=== PATIENT | male | born 1945 | race Caucasian/White ===

== ENCOUNTER → 2017-10-02 | Outpatient (CLI) | payer BC | END | disposition home or self-care (01) | LOC: ECHO 07:44 | DX: J44.1 Chronic obstructive pulmonary disease with (acute) exacerbation (principal); I10 Essential (primary) hypertension; I34.0 Nonrheumatic mitral (valve) insufficiency; I34.1 Nonrheumatic mitral (valve) prolapse; R06.09 Other forms of dyspnea | CPT/HCPCS: 93306 ==

== ENCOUNTER → 2018-02-26 | Outpatient (CLI) | payer BC ==
[2018-02-26 12:55] LABS: ADD MAN DIFF? NO
[2018-02-26 12:59] LABS: BASO # 0.1 x10^3/uL (0.0-0.2); BASO % 1 % (0-3); EOS # 0.3 x10^3/uL (0.0-0.7); EOS % 3 % (0-3); HEMATOCRIT 44.2 % (39.0-53.0); HEMOGLOBIN 14.9 g/dL (13.0-17.5); LYMPH # 2.4 x10^3/uL (1.0-4.8); LYMPH % 19 % (24-48); MEAN CORPUSCULAR HEMOGLOBIN 30 pg (25-35); MEAN CORPUSCULAR HGB CONC 34 g/dL (31-37); MEAN CORPUSCULAR VOLUME 88 fL (79-100); MONO % 8 % (0-9); NEUT # 8.6 x10^3uL (1.8-7.7); NEUT % 69 % (31-73); PLATELET COUNT 253 x10^3/uL (140-400); RED CELL DISTRIBUTION WIDTH 14.6 % (11.5-14.5); WHITE BLOOD COUNT 12.4 x10^3/uL (4.0-11.0)
[2018-02-26 13:18] LABS: ALBUMIN 3.4 g/dL (3.4-5.0); ALBUMIN/GLOBULIN RATIO 0.8 (1.0-1.7); ALK PHOS 97 U/L (46-116); ALT (SGPT) 20 U/L (16-63); ANION GAP 11 (6-14); AST (SGOT) 14 U/L (15-37); BLOOD UREA NITROGEN 18 mg/dL (8-26); BUN/CREATININE RATIO 18 (6-20); CALCIUM 8.7 mg/dL (8.5-10.1); CARBON DIOXIDE 24 mmol/L (21-32); CHLORIDE 101 mmol/L (98-107); GFR 73.7; GLUCOSE 155 mg/dL (70-99); POTASSIUM 4.1 mmol/L (3.5-5.1); SODIUM 136 mmol/L (136-145); TOTAL BILIRUBIN 0.5 mg/dL (0.2-1.0); TOTAL PROTEIN 7.6 g/dL (6.4-8.2)
== END | disposition home or self-care (01) ==
LOC: LAB 12:37
DX: Z01.818 Encounter for other preprocedural examination (principal)
CPT/HCPCS: 36415; 71046; 80053; 85025

== ENCOUNTER → 2018-02-27 | Outpatient (CLI) | payer BC ==
[2018-02-27] MEDS: IOHEXOL 300 MG/ML 100ML VIAL. IV (12:30)
== END | disposition home or self-care (01) ==
LOC: CT 12:14
DX: J43.9 Emphysema, unspecified (principal); I82.290 Acute embolism and thrombosis of other thoracic veins; I11.9 Hypertensive heart disease without heart failure; E11.9 Type 2 diabetes mellitus without complications; R91.8 Other nonspecific abnormal finding of lung field
CPT/HCPCS: 71260; Q9967

== ENCOUNTER → 2018-03-06 | Day surgery (SDC) | payer BC ==
[~2018-03-06] MED LIST: EPINEPHrine 1 MG/ML VIAL; IOHEXOL 300 MG/ML 100ML VIAL.; IV RINGERS,LACTATED 1000ML 1,000 ML IV; LIDOCAINE 1% Multi-Dose 50 ML VIAL.; LIDOCAINE 2% PF Vial for OR 5 ML VIAL.; PROPOFOL 40 ML IV
[2018-03-06 12:56] LABS: POC GLUCOSE 184 mg/dL (70-99)
[2018-03-06 13:05] LABS: ADD MAN DIFF? NO
[2018-03-06 13:08] LABS: BASO # 0.1 x10^3/uL (0.0-0.2); BASO % 1 % (0-3); EOS # 0.3 x10^3/uL (0.0-0.7); EOS % 3 % (0-3); HEMATOCRIT 45.3 % (39.0-53.0); HEMOGLOBIN 15.5 g/dL (13.0-17.5); LYMPH # 2.1 x10^3/uL (1.0-4.8); LYMPH % 21 % (24-48); MEAN CORPUSCULAR HEMOGLOBIN 30 pg (25-35); MEAN CORPUSCULAR HGB CONC 34 g/dL (31-37); MEAN CORPUSCULAR VOLUME 88 fL (79-100); MONO # 0.8 x10^3/uL (0.0-1.1); MONO % 8 % (0-9); NEUT # 6.9 x10^3uL (1.8-7.7); NEUT % 67 % (31-73); PLATELET COUNT 278 x10^3/uL (140-400); RED BLOOD COUNT 5.16 x10^6/uL (4.30-5.70); RED CELL DISTRIBUTION WIDTH 14.4 % (11.5-14.5); WHITE BLOOD COUNT 10.2 x10^3/uL (4.0-11.0)
[2018-03-06] MEDS: ALBUTEROL SULFATE 2.5 MG/3 ML NEBU. IH (13:10)
[2018-03-06 13:18] LABS: INR 1.1 (0.8-1.1); PROTHROMBIN TIME PATIENT 13.5 SEC (11.7-14.0)
== END | disposition home or self-care (01) ==
LOC: SURG 12:18
DX: J42 Unspecified chronic bronchitis (principal); Z98.890 Other specified postprocedural states; I25.10 Atherosclerotic heart disease of native coronary artery without angina pectoris; Z95.1 Presence of aortocoronary bypass graft; Z95.0 Presence of cardiac pacemaker; J43.9 Emphysema, unspecified; I11.9 Hypertensive heart disease without heart failure; E78.00 Pure hypercholesterolemia, unspecified; G47.30 Sleep apnea, unspecified; E66.9 Obesity, unspecified; E11.9 Type 2 diabetes mellitus without complications; F32.9 Major depressive disorder, single episode, unspecified; F41.9 Anxiety disorder, unspecified; F17.200 Nicotine dependence, unspecified, uncomplicated; Z82.49 Family history of ischemic heart disease and other diseases of the circulatory system; Z79.4 Long term (current) use of insulin
CPT/HCPCS: 31622; 31624; 31625; 36415; 82962; 85025; 85610; 87070; 87102; 87205; 88112; 88305; 94640; J0171; J2001; J2704; J7613; Q9967

== ENCOUNTER 2018-03-20 06:58 | Outpatient (CLI) | payer BC ==
[2018-03-20 07:44] LABS: ADD MAN DIFF? NO
[2018-03-20 07:50] LABS: BASO # 0.2 x10^3/uL (0.0-0.2); BASO % 2 % (0-3); EOS # 0.4 x10^3/uL (0.0-0.7); EOS % 3 % (0-3); LYMPH # 2.9 x10^3/uL (1.0-4.8); LYMPH % 23 % (24-48); MEAN CORPUSCULAR HEMOGLOBIN 31 pg (25-35); MEAN CORPUSCULAR HGB CONC 35 g/dL (31-37); MEAN CORPUSCULAR VOLUME 88 fL (79-100); MONO % 8 % (0-9); NEUT # 8.4 x10^3uL (1.8-7.7); NEUT % 65 % (31-73); PLATELET COUNT 262 x10^3/uL (140-400); RED BLOOD COUNT 5.23 x10^6/uL (4.30-5.70); RED CELL DISTRIBUTION WIDTH 14.5 % (11.5-14.5)
[2018-03-20] MEDS ORDERED: MIDAZOLAM HCL/PF 2 MG/2 ML VIAL. (08:01)
[2018-03-20 08:02] LABS: PROTHROMBIN TIME PATIENT 12.8 SEC (11.7-14.0)
[2018-03-20] MEDS ORDERED: NALOXONE 0.4 MG/ML VIAL. (08:02)
[2018-03-20] MEDS ORDERED: fentaNYL PF VIAL 100 MCG/2 ML VIAL (08:02)
[2018-03-20] MEDS ORDERED: FLUMAZENIL 0.5 MG/5 ML VIAL. IV (08:02)
[2018-03-20] MEDS ORDERED: LIDOCAINE WITH 8.4% SOD BICARB 3 ML DISP.SYRIN. (08:26)
[2018-03-20 08:38] LABS: POC GLUCOSE 281 mg/dL (70-99)
[2018-03-20 08:38] LABS: POC GLUCOSE 297 mg/dL (70-99)
[2018-03-20] MEDS: MIDAZOLAM HCL/PF 2 MG/2 ML VIAL. IV (09:00)
[2018-03-20] MEDS: LIDOCAINE WITH 8.4% SOD BICARB 3 ML DISP.SYRIN. IJ (09:00)
[2018-03-20] MEDS: fentaNYL PF VIAL 100 MCG/2 ML VIAL IV (09:00)
== END 2018-03-20 12:00 | disposition home or self-care (01) ==
LOC: INTRAD 06:58
DX: C34.92 Malignant neoplasm of unspecified part of left bronchus or lung (principal); Z98.890 Other specified postprocedural states; I11.9 Hypertensive heart disease without heart failure; E78.00 Pure hypercholesterolemia, unspecified; G47.30 Sleep apnea, unspecified; E66.9 Obesity, unspecified; Z68.32 Body mass index [BMI] 32.0-32.9, adult; E11.9 Type 2 diabetes mellitus without complications; I25.10 Atherosclerotic heart disease of native coronary artery without angina pectoris; Z95.1 Presence of aortocoronary bypass graft; Z95.0 Presence of cardiac pacemaker; F41.9 Anxiety disorder, unspecified; F32.9 Major depressive disorder, single episode, unspecified; F17.200 Nicotine dependence, unspecified, uncomplicated; Z82.49 Family history of ischemic heart disease and other diseases of the circulatory system; Z79.899 Other long term (current) drug therapy; J43.9 Emphysema, unspecified; Z86.718 Personal history of other venous thrombosis and embolism; Z79.82 Long term (current) use of aspirin; Z79.84 Long term (current) use of oral hypoglycemic drugs
CPT/HCPCS: 32405; 36415; 71046; 77012; 82962; 85025; 85610; 99152; C1892; J2250; J3010

== ENCOUNTER 2018-04-05 08:23 | Outpatient (CLI) | payer BC ==
[~2018-04-05] VITALS: Ht 185.4 cm; Wt 110.7 kg
[~2018-04-05 08:23] MED LIST changes: +ASPI325T8 PO; +DIGO0.25 PO; +DIGO250T PO; -EPINEPHrine 1 MG/ML VIAL; +GEMF600T3 PO; +INSU100V8 SQ; -IOHEXOL 300 MG/ML 100ML VIAL.; -IV RINGERS,LACTATED 1000ML 1,000 ML IV; -LIDOCAINE 1% Multi-Dose 50 ML VIAL.; -LIDOCAINE 2% PF Vial for OR 5 ML VIAL.; +LISI-338 PO; +METF500T5 PO; -PROPOFOL 40 ML IV; +VENL150C6 PO
[2018-04-05 09:09] VITALS: BP 150/72
[2018-04-05] MEDS ORDERED: LIDOCAINE 1%/EPI 1:100,000 20 ML VIAL. ONE (09:21)
[2018-04-05] MEDS ORDERED: HEPARIN for IV BOLUS 10,000 UNIT/10 ML VIAL. ONE (10:10)
[2018-04-05] MEDS ORDERED: HEPARIN PF 500 UNIT/5 ML DISP.SYRIN. IV ONE ×2 (10:11→11:00)
[2018-04-05] MEDS ORDERED: fentaNYL PF VIAL 100 MCG/2 ML VIAL ONE (10:35)
[2018-04-05] MEDS ORDERED: MIDAZOLAM HCL/PF 2 MG/2 ML VIAL. ONE (10:35)
[2018-04-05] MEDS ORDERED: IOHEXOL 240 MG/ML 50ML VIAL. ONE (10:45)
[2018-04-05] MEDS ORDERED: MIDAZOLAM HCL/PF 2 MG/2 ML VIAL. IV ONE (11:00)
[2018-04-05] MEDS ORDERED: fentaNYL PF VIAL 100 MCG/2 ML VIAL IV ONE (11:00)
[2018-04-05] MEDS ORDERED: LIDOCAINE 1%/EPI 1:100,000 20 ML VIAL. IJ ONE (11:00)
[2018-04-05] MEDS ORDERED: CONTRAST GIVEN. MC PRN (11:00)
[2018-04-05 11:23] VITALS: BP 138/62
[2018-04-05] MEDS ORDERED: IOHEXOL 240 MG/ML 50ML VIAL. IV ONE (11:30)
[2018-04-05 11:43] VITALS: BP 153/64
[2018-04-05 11:57] VITALS: BP 154/55
[2018-04-05 12:11] VITALS: BP 140/62
--- NOTE | 2018-04-06 13:38 | RAD ---
Procedure: Ultrasound and fluoroscopically guided placement of right internal jugular power port.. 04/06/2018 1:33 PM Clinical Indication: Central venous access for chemotherapy. 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 Sedation: Conscious sedation was administered for 30 minutes. The patient was monitored by a qualified independent observer throughout the time of sedation. Please refer to the medical record for exact doses of medications utilized to achieve moderate sedation. Fluoroscopy time: 3.1 Minutes Dose area product: 34 Gycm2 Consent: The procedure was explained in its entirety to the patient or the patients designated exhibit display representative by a member of the treatment team, including a discussion of the risks, benefits and commonly accepted alternatives to the procedure, as well as the expected consequences of no therapy whatsoever. Discussion of the risks included, but was not limited to, those that are most frequent and those that are rare but possibly severe or life-threatening, as well as the possibility of unforeseen complications. The patient is a right internal jugular and subclavian vein occlusion. Patient is a left hilar mass. Clearvue port was placed for this purpose, intentionally placed immediately inferior to the left clavicle. Technique and Findings: All elements of maximal sterile barrier technique including the use of a cap, mask, sterile gown, sterile gloves, large sterile sheet, appropriate hand hygiene, and 2% chlorhexidine for cutaneous antisepsis (or acceptable alternative antiseptic per current guidelines) were followed for this procedure. Following informed consent, and a timeout procedure, the patient was prepped and draped in the usual sterile fashion. Ultrasound interrogation of the left neck revealed patency and compressibility of the right internal jugular vein. A 21-gauge micropuncture was then used to gain access to this vein under ultrasound guidance. A hard copy ultrasound image was recorded. The needle was exchanged over a wire for a sheath. A 1 inch incision was made several centimeters inferior to the venotomy site. A catheter was tunneled from this site dermatotomy site in the neck. Catheter was advanced through peel-away sheath such that its tip was in the proximal right atrium with the patient supine. The catheter was trimmed to length and connected to the port reservoir. The port was found to flush and aspirate normally. The wound was closed in layers using 4-0 Vicryl suture. Sterile dressings were applied. Impression: Successful ultrasound and fluoroscopically guided placement of a left internal jugular port
== END 2018-04-05 12:42 | disposition home or self-care (01) ==
LOC: INTRAD 08:23
PROVIDERS: ATTEND Internal Medicine Hematology & Oncology
DX: Z45.2 Encounter for adjustment and management of vascular access device (principal); I74.2 Embolism and thrombosis of arteries of the upper extremities; I25.10 Atherosclerotic heart disease of native coronary artery without angina pectoris; E78.00 Pure hypercholesterolemia, unspecified; G47.30 Sleep apnea, unspecified; E66.9 Obesity, unspecified; F32.9 Major depressive disorder, single episode, unspecified; F41.9 Anxiety disorder, unspecified; Z98.890 Other specified postprocedural states; Z95.1 Presence of aortocoronary bypass graft; Z95.0 Presence of cardiac pacemaker; Z85.118 Personal history of other malignant neoplasm of bronchus and lung; Z72.0 Tobacco use; Z79.82 Long term (current) use of aspirin; Z79.4 Long term (current) use of insulin; Z79.899 Other long term (current) drug therapy
CPT/HCPCS: 36561; 75827; 76937; 77001; C1751; C1769; C1892; J0690; J2250; J3010; J3490; Q9966; 99152; 99153

== ENCOUNTER → 2018-05-29 | Outpatient (CLI) | payer BC ==
[~2018-05-29] MED LIST changes: -GEMF600T3 PO; +GEMF600T4 PO; +METF500T16 PO; -METF500T5 PO
--- NOTE | 2018-05-29 10:10 | RAD ---
CT CHEST WO CONTRAST Indication: Lung cancer Technique: Noncontrast CT imaging was performed of the chest, multiplanar reconstruction images submitted. One or more of the following individualized dose reduction techniques were utilized for this examination: 1. Automated exposure control 2. Adjustment of the mA and/or kV according to patient size 3. Use of iterative reconstruction technique. Comparison: February 27, 2018 Findings: There is persistent although somewhat smaller spiculated left upper lobe mass in greatest dimension about 4.6 cm transverse by 3 cm AP by 3.1 cm CC versus previously about 4.7 cm transverse by 3.7 cm AP by 4.3 cm cc. There is again abutment of the left major fissure. There is again more peripheral somewhat bandlike density. Several anterior left upper lobe nodule about 1.1 cm with a somewhat bilobed appearance is stable. Tiny left upper lobe nodule superiorly axial image 17 about 0.5 cm is stable. Left lower lobe nodule axial image 42 about 0.9 cm is similar. Linear likely fibrotic change of the left lower lobe near the base is unchanged, also right lower lobe density stable. There is no new pulmonary nodularity. There are again calcified pleural plaques on the right. There is centrilobular emphysema with upper zone predominance. There is mediastinal lymphadenopathy. Pretracheal node just above fidel and measures about 1.5 cm x 3 cm, fairly similar. More superior right paratracheal node axial image 15 about 1.2 cm short axis dimension is slightly larger as previously about 1 cm. Another superior right paratracheal node axial image 12 about 1.2 cm short axis dimension previously measured about 1 cm. Another right paratracheal node axial image 22 measures about 1 cm short axis dimension versus previously about 0.8 cm. Thoracic aortic caliber is similar, again dilatation of the ascending thoracic aorta about 4.2 cm. There again has been median sternotomy. There is again electronic cardiac device. There is no pleural or pericardial effusion or pneumothorax. There is left internal jugular port catheter. There is cholelithiasis. There is coronary calcification. There is again right axillary lymphadenopathy, largest individual node about 1.3 cm short axis dimension versus previously about 1 cm. There is also again component of likely vascular congestion in the right axillary region. IMPRESSION: 1. There is persistent although somewhat smaller spiculated left upper lobe mass with abutment of the major fissure. Other previously seen lung nodules are stable, no new pulmonary nodularity. There is persistent slightly increased mediastinal and right axillary lymphadenopathy. 2. There is stable aneurysmal dilatation ascending thoracic aorta about 4.2 cm. There is coronary calcification. 3. There is centrilobular emphysema. 4. There is cholelithiasis. Electronically signed by: Ladarius Kam MD (05/29/2018 10:06 AM) [id number]
== END | disposition home or self-care (01) ==
LOC: CT 08:59
PROVIDERS: ATTEND Internal Medicine Hematology & Oncology
DX: C34.12 Malignant neoplasm of upper lobe, left bronchus or lung (principal); J43.2 Centrilobular emphysema; I71.2 Thoracic aortic aneurysm, without rupture; I25.10 Atherosclerotic heart disease of native coronary artery without angina pectoris; K80.80 Other cholelithiasis without obstruction; F17.210 Nicotine dependence, cigarettes, uncomplicated
CPT/HCPCS: 71250

== ENCOUNTER → 2018-09-14 | Outpatient (CLI) | payer BC ==
[~2018-09-14] MED LIST changes: +DURV120V IV; +FURO-68 PO; -GEMF600T4 PO; +GEMF600T8 PO
--- NOTE | 2018-09-14 11:11 | RAD ---
EXAM: CT Chest without IV contrast CLINICAL HISTORY: RESTAGE LUNG CA, FATIGUE COMPARISON: 05/29/2018, 03/02/2019 TECHNIQUE: CT of the chest without intravenous contrast. Axial, coronal and sagittal reformatted images were generated. ---PQRS compliance statement - One or more of the following individualized dose reduction techniques were utilized for this study: 1. Automated exposure control 2. Adjustment of the mA and/or kV according to patient size 3. Use of iterative reconstruction technique--- FINDINGS: Lack of intravenous contrast limits evaluation of solid organs, vasculature, and lymph nodes. Chest: The heart is not enlarged. No pericardial effusion. Coronary artery calcifications are seen. Aortic root calcifications are also seen. Ascending aorta measures 4.2 cm, stable. Enlarged mediastinal lymph nodes are seen. For example a 2.7 x 1.5 cm precarinal lymph node previously measured 3 x 1.5 cm, stable accounting for differences in technique. A right paratracheal lymph node measures 1.3 cm short axis, previously 1.2 cm short axis. A distinct right paratracheal lymph node measures 1.1 cm in short axis, previously 1.2 cm. Right axillary lymphadenopathy is also seen with associated soft tissue infiltration and vascular prominence. For example a right axillary lymph node measures 2.1 x 1.2 cm. A 3.5 x 2.6 cm spiculated lung mass previously measured 4.6 x 3 cm. Associated bandlike density is seen is seen about the spiculated left lung mass. This continues about the left major fissure. A 1.2 cm left upper lobe lung nodule is stable. Several additional smaller 4 mm lung nodules are seen. An 8 mm peripheral left lower lobe lung nodule previously measured 9 mm, stable. Several additional 4 mm lung nodules are seen. Bilateral emphysematous changes are seen. Interstitial prominence is seen bilaterally, stable. No pleural effusion or pneumothorax. No pericardial effusion. Left chest port terminates of the distal SVC. Visualized Upper abdomen: Calcified gallstones are seen within the gallbladder bladder. Moderate to large volume colonic stool content is seen. Bones: Degenerative changes of spine are seen. IMPRESSION: Spiculated left lung mass is marginally decreased in size. The mediastinal, hilar and axillary lymph nodes are stable in size. Bilateral lung nodules are also stable in size Electronically signed by: Jaime Anand MD (09/14/2018 11:07 AM) [facility]
== END | disposition home or self-care (01) ==
LOC: CT 09:42
PROVIDERS: ATTEND Internal Medicine Hematology & Oncology
DX: C34.12 Malignant neoplasm of upper lobe, left bronchus or lung (principal); J43.9 Emphysema, unspecified; R91.8 Other nonspecific abnormal finding of lung field; K80.20 Calculus of gallbladder without cholecystitis without obstruction; I25.10 Atherosclerotic heart disease of native coronary artery without angina pectoris; I70.0 Atherosclerosis of aorta; M47.814 Spondylosis without myelopathy or radiculopathy, thoracic region
CPT/HCPCS: 71250

== ENCOUNTER → 2018-10-08 | Outpatient (CLI) | payer BC ==
[~2018-10-08] MED LIST changes: +LEXAPRO20 MG PO; +MELO15TA6 PO; +MELO7.5T5 PO; +OXYMETAZOLINE 0.05% NASAL SPRAY 30ML BOTTLE. NS ONE; +ZOLPIDEM 5 MG TABLET. PO ONE
--- NOTE | 2018-10-09 09:39 | SLEEP ---
DATE OF STUDY: 10/08/2018 ATTENDING PHYSICIAN: Dr. Anisha Montes. The patient is 73 years old who weighs 249 pounds with a BMI of 34. The patient's Leota score was 15. The patient underwent split night study performed at [facility]. During the night of study, the patient spent 478 minutes in bed and slept for 319 minutes with a low sleep efficiency of 67%. Sleep latency was 65 minutes with absent REM sleep. Overall, sleep architecture showed increased stage 1 and stage 2 sleep with absent N3 sleep and absent REM sleep. During the initial diagnostic portion of the study, the patient slept for 91 minutes. During that time, the patient had 10 obstructive apneas, no mixed or central apneas and 119 hypopneas. The patient's apnea-hypopnea index was 85 per hour, supine index 85 per hour. REM sleep was not observed. Nocturnal oximetry study revealed an average oxygen saturation of 90% with the lowest of 82%. 99% of time oxygen saturation remained between 80% and 89%. EKG monitoring revealed an average heart rate of 86 beats per minute, no sustained arrhythmias were observed. PLMS were not seen. The patient met the criteria for CPAP initiation. It was started at 5 cm water and titrated up to 20 cm water. At the final pressure, the patient slept for 47 minutes. The patient had supine sleep throughout, no REM sleep observed. The patient's AHI was reduced to 1 per hour and oxygen saturation remained above 88% with lowest saturation of 87%. The patient used a medium size nasal mask. IMPRESSION: 1. Severe sleep apnea-hypopnea syndrome at an AHI of 85 per hour. 2. Nocturnal hypoxia secondary to obstructive sleep apnea, but resolved with CPAP. 3. No clinically significant PLMS. RECOMMENDATIONS: 1. CPAP at 20 cm water completely eliminated the patient's sleep apnea and should be used on a nightly basis. 2. Follow up in 4-6 weeks to assess compliance with CPAP and to document clinical improvement. 3. Weight loss was strongly advised. 4. Avoid [employer] depressants. 5. Caution regarding driving until symptoms of sleep apnea resolve with the use of CPAP. YO CARROLL MD DR: MAIA/lon JOB#: [id number] / [id number] Anisha Cline
== END | disposition home or self-care (01) ==
LOC: SLPLAB 18:35
PROVIDERS: ATTEND Internal Medicine Critical Care Medicine
DX: G47.33 Obstructive sleep apnea (adult) (pediatric) (principal); G47.34 Idiopathic sleep related nonobstructive alveolar hypoventilation
CPT/HCPCS: 95810

== ENCOUNTER → 2018-12-21 | Outpatient (CLI) | payer BC ==
[~2018-12-21] MED LIST changes: -OXYMETAZOLINE 0.05% NASAL SPRAY 30ML BOTTLE. NS ONE; -ZOLPIDEM 5 MG TABLET. PO ONE
--- NOTE | 2018-12-21 16:39 | RAD ---
CT of the chest without contrast, 12/21/2018: HISTORY: Lung nodule, previous lung cancer Noncontrast scans were obtained and compared to a study from 09/14/2018. There is calcific plaquing of the thoracic aorta without evidence of aneurysm. Moderate coronary artery calcifications are present. A central venous catheter extends to the level the atriocaval junction. Mild mediastinal adenopathy appears unchanged. The largest node lies in the precarinal region and measures approximately 14 mm in short axis dimension. There are emphysematous changes in the lungs. There are scattered parenchymal scars. There is a spiculated mass along the lateral aspect of the left hilum with mild adjacent infiltrate. This appears unchanged. There is a 10 mm noncalcified nodule in the lateral aspect of left lower lobe as best seen on image 189 of series #3. It appears to have increased in size since the previous study at which time it measured approximately 7 mm. The nodule is better defined on the current exam due to thinner slice reconstructions. There is a 12 mm there is a 12 x 7 mm nodule in the anterior aspect of the left upper lobe as seen on image 142 of series #3 which appears unchanged. There is a 5 mm nodule in the left upper lobe as seen on image 91 of series #3. There was only a faint opacity in this region on the previous study. There is a 3 mm nodule in the anterior aspect of the left lower lobe as seen on image 124 of series #3 which is new. A similar small nodule is present posteriorly in the left upper lobe on image 108 of series #3 which is also new. There is no evidence of pleural fluid. IMPRESSION: 1. Emphysema with scattered parenchymal scarring. 2. The spiculated left parahilar mass appears unchanged since 09/14/2018. 3. Unchanged mild mediastinal adenopathy. 4. Two left pulmonary nodules have increased slightly in size and there are at least 2 new tiny left pulmonary nodules since 09/14/2018. Metastatic disease is suspected. PQRS Compliance Statement: One or more of the following individualized dose reduction techniques were utilized for this examination: 1. Automated exposure control 2. Adjustment of the mA and/or kV according to patient size 3. Use of iterative reconstruction technique Electronically signed by: Rasta Alexandra MD (12/21/2018 4:36 PM) [facility]
== END | disposition home or self-care (01) ==
LOC: CT 13:13
PROVIDERS: ATTEND Internal Medicine Hematology & Oncology
DX: J43.9 Emphysema, unspecified (principal); R91.8 Other nonspecific abnormal finding of lung field; R59.0 Localized enlarged lymph nodes; I70.0 Atherosclerosis of aorta; I25.10 Atherosclerotic heart disease of native coronary artery without angina pectoris
CPT/HCPCS: 71250

== ENCOUNTER → 2019-03-05 | Outpatient (CLI) | payer BC ==
--- NOTE | 2019-03-05 13:22 | RAD ---
EXAM: CT Chest without IV contrast CLINICAL HISTORY: MALIGNANT NEOPLASM OF LEFT LUNG COMPARISON: 12/31/2018, 09/14/2018. TECHNIQUE: CT of the chest without intravenous contrast. Axial, coronal and sagittal reformatted images were generated. ---PQRS compliance statement - One or more of the following individualized dose reduction techniques were utilized for this study: 1. Automated exposure control 2. Adjustment of the mA and/or kV according to patient size 3. Use of iterative reconstruction technique--- FINDINGS: Lack of intravenous contrast limits evaluation of solid organs, vasculature, and lymph nodes. Chest: Heart is not enlarged. Coronary artery calcifications are seen. Left port tip projects over the distal SVC/proximal right atrium. No pericardial effusion. Pacer leads are seen. Several prominent and borderline enlarged mediastinal lymph nodes are seen, in general grossly stable in size. For example a precarinal lymph node measures 1.4 cm short axis, stable. Evaluation for hilar lymph node limited on this noncontrast examination. Diffuse infiltration within the right axilla with associated enlarged lymph nodes is essentially unchanged. No left axillary lymphadenopathy. No pleural effusion or pneumothorax. Emphysematous changes are again seen. The left hilar spiculated mass is grossly stable in size measuring approximately 2.4 x 2.3 cm, and when remeasured on prior examination previously measured 2.4 x 2.4 cm. Associated rind of soft tissue thickening/scarring/infiltrate is essentially stable. The spiculated mass continues to abut the left major fissure. A 9 mm left lower lobe lung nodule (series 2 image 41) is stable, previously 1 cm. An anterior left upper lobe/lingular lung nodule measures 1 x 0.7 cm (series 3 image 31) is stable, previously 1.2 x 0.7 cm. A 5 mm left upper lobe lung nodule seen on prior CT is essentially stable accounting for differences in technique/slice thickness (series 3 image 20). A 3 mm left lower lobe lung nodule (series 3 image 23) is stable. A 3 mm anterior left upper lobe lung nodule (series 3 image 21) is also stable. Several additional bilateral lung nodules are not significantly changed. Visualized Upper abdomen: Calcified gallstones are seen within the gallbladder. Moderate colonic stool content is seen. Vascular calcifications are seen. Left upper pole renal cystic lesion is noted. Right interpolar renal cystic lesion is seen. Bones: Multilevel degenerative changes are seen. Changes of prior sternotomy. IMPRESSION: 1. The spiculated left hilar lung mass is essentially stable in size. Additional lung nodules are also grossly stable in size. 2. Prominent and enlarged mediastinal nodes are also grossly stable. Right axillary infiltration with enlarged lymph nodes is also unchanged. Electronically signed by: Jaime Anand MD (03/05/2019 1:20 PM) [facility]
== END | disposition home or self-care (01) ==
LOC: CT 09:34
PROVIDERS: ATTEND Internal Medicine Hematology & Oncology
DX: C34.12 Malignant neoplasm of upper lobe, left bronchus or lung (principal); J43.9 Emphysema, unspecified; R91.8 Other nonspecific abnormal finding of lung field; M47.814 Spondylosis without myelopathy or radiculopathy, thoracic region; R59.0 Localized enlarged lymph nodes; K80.20 Calculus of gallbladder without cholecystitis without obstruction; N28.89 Other specified disorders of kidney and ureter; I70.90 Unspecified atherosclerosis; I25.10 Atherosclerotic heart disease of native coronary artery without angina pectoris
CPT/HCPCS: 71250

== ENCOUNTER → 2019-05-24 | Outpatient (CLI) | payer BC ==
[~2019-05-24] MED LIST changes: +ALBU2.5V8 INH; +ASPI81TA50 PO; +BUDE10.2 IH; +HEPARIN PF 500 UNIT/5 ML DISP.SYRIN. IVP ONE; +IOHEXOL 300 MG/ML 100ML VIAL. IV ONE
--- NOTE | 2019-05-24 09:09 | RAD ---
Chest CT with contrast Clinical indications: Left upper lobe lung cancer. Follow-up study COMPARISON: March 05, 2019 Technique: After IV infusion of 75 cc of Omnipaque 300, helical CT scanning of the chest was performed. PQRS compliance Statement One or more of the following individualized dose reduction techniques were utilized for this study: 1. Automated exposure control 2. Adjustment of the mA and/or kV according to patient size 3. Use of iterative reconstruction technique FINDINGS: No focal aneurysmal dilatation or dissection of the thoracic aorta is seen. Heart size is normal. Calcified atheromatous disease of the coronary arteries is seen. A sternotomy is evident. Pacemaker is present. No pericardial effusion is seen. Mediastinal lymphadenopathy is unchanged. Right axillary lymph nodes and soft tissue thickening is unchanged. No enlarged hilar lymphadenopathy is evident. Left upper lobe perihilar lung mass is unchanged. There is a new area of nodular lung infiltrate within the lateral periphery of the left upper lobe seen on series 2 images 23 through 26. The other left upper lobe lung nodules are unchanged. The left lower lobe lung nodules are stable. Small right lung nodules are stable. Again seen is a small groundglass lung infiltrate within the lateral aspect of the superior segment of the right lower lobe which is stable. No pleural effusion or pneumothorax is seen. Proximal bronchial tree remains patent. Radiopaque gallstones are seen. No adrenal mass is evident. IMPRESSION: Stable left upper lobe perihilar lung mass. New finding of nodular infiltrate within the lateral aspect of the left upper lobe extending to the pleura. This could represent radiation pneumonitis but malignant extension is a possibility. The other bilateral lung nodules are stable. Stable mediastinal lymphadenopathy. Stable right axillary lymphadenopathy and right axillary soft tissue thickening. Cholelithiasis. Electronically signed by: Mulugeta Hicks MD (05/24/2019 9:06 AM) [id number]
== END | disposition home or self-care (01) ==
LOC: CT 07:45
PROVIDERS: ATTEND Internal Medicine Hematology & Oncology
DX: C34.12 Malignant neoplasm of upper lobe, left bronchus or lung (principal); K80.20 Calculus of gallbladder without cholecystitis without obstruction; R91.8 Other nonspecific abnormal finding of lung field; R59.0 Localized enlarged lymph nodes; I25.10 Atherosclerotic heart disease of native coronary artery without angina pectoris
CPT/HCPCS: 71260; Q9967

== ENCOUNTER → 2019-06-11 | Outpatient (CLI) | payer BC ==
[~2019-06-11] MED LIST changes: -HEPARIN PF 500 UNIT/5 ML DISP.SYRIN. IVP ONE; -IOHEXOL 300 MG/ML 100ML VIAL. IV ONE
--- NOTE | 2019-06-11 13:30 | RAD ---
MR#: [id number] Date of Study: 06/11/2019 Ordering Physician: SJ GUEVARA, Referring Physician: SJ GUEVARA, Tech: Roscoe Saenz, MARGARET, RDMS, RVT, RDCS, RTR APPROVED REPORT Patient Location: OUT-PATIENT Indications Claudication:Bilaterally VELOCITY AND DOPPLER WAVEFORM ANALYSIS RIGHT cm/secWaveformSeverity LEFT cm/secWaveform Severity dCFA 193.0MonophasicdCFA 171.0Monophasic Prof Fem Art. 186.0BiphasicProf Fem Art. 72.0Biphasic Fem Art Prox. 396.0MonophasicFem Art Prox. 117.0Biphasic Fem Art Mid. 276.0MonophasicFem Art Mid. 267.0Biphasic Fem Art Dist. 67.0MonophasicFem Art Dist. 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 62.0MonophasicPTA Prox. 29.0Monophasic PRINTING MACHINE OPERATOR TAPE RULES Dist. 31.0MonophasicPTA Dist. 28.0Monophasic DORIE Prox. 33.0MonophasicATA Prox. 23.0Monophasic DPA 13MonophasicDPA 13Monophasic Image Findings Grayscale images of the bilateral lower EXT arterial vessels reveal moderate diffuse plaque. On the right there is likely a greater than 70% stenosis involving the proximal to mid SFA. There is blunted monophasic waveforms below the knee with 2 vessel runoff. The peroneal artery is not well vis ualized. On the left there is likely a greater than 70% stenosis involving the mid SFA. There is again 2 vesse l runoff below the knee with blunted monophasic waveforms. The peroneal artery again is not visualize d. Critical Notification Critical Value: No <Conclusion> 1. 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 Signed by : Sj Guevara, Electronically Approved : 06/11/2019 13:30:27
--- NOTE | 2019-06-11 14:47 | CARD ---
MR#: [id number] Date of Study: 06/11/2019 Ordering Physician: SJ GUEVARA, Referring Physician: SJ GUEVARA, Lora: Gaye Brooks APPROVED REPORT EXAM: Two-dimensional and M-mode echocardiogram with Doppler and color Doppler. Other Information Quality : Average Technically limited study due to body habitus. INDICATION Dyspnea 2D DIMENSIONS RVDd3.4 (2.9-3.5cm)Left Atrium(2D)3.5 (1.6-4.0cm) IVSd2.0 (0.7-1.1cm)Aortic Root(2D)2.7 (2.0-3.7cm) LVDd5.2 (3.9-5.9cm)LVOT Diameter2.4 (1.8-2.4cm) PWd0.9 (0.7-1.1cm)LVDs3.6 (2.5-4.0cm) FS (%) 31.0 %SV76.5 ml LVEF(%)58.3 (>50%) Aortic Valve AoV Peak Surendra.116.8cm/sAoV VTI21.1cm AO Peak GR.5.5mmHgLVOT Peak Surendra.98.3cm/s AO Mean GR.3mmHgAVA (VMAX)3.71cm2 Mitral Valve MV E Gyztcooa95.8cm/sMV E Peak Gr.128mmHg MV DECEL [id number] A Ylnsnoet723.2cm/s MV E Mean Gr.2mmHgE/A Ratio0.9 Pulmonary Valve PV Peak Eubynwnf389.0cm/s Tricuspid Valve TR P. Lfrdpbav604fg/sRAP TIZFLFHV7phQg TR Peak Gr.16kcIcKKDY75xkBq Pulmonary Vein S1 Htdyyquf33.3cm/sD2 Hdusuhzt35.8cm/s LEFT VENTRICLE The left ventricle is normal size. There is moderate septal left ventricular hypertrophy. The left ve ntricular systolic function is normal and the ejection fraction is within normal range. The Ejection Fraction is 55-60%. Septal motion suggestive of conduction defect. Transmitral Doppler flow pattern i s Grade I-abnormal relaxation pattern. RIGHT VENTRICLE The right ventricle is normal size. There is normal right ventricular wall thickness. The right ventr icular systolic function is normal. ATRIA The left atrium size is normal. The right atrium size is normal. The interatrial septum is intact wit h no evidence for an atrial septal defect or patent foramen ovale as noted on 2-D or Doppler imaging. AORTIC VALVE The aortic valve is thickened but opens well. Doppler and Color Flow revealed no significant aortic r egurgitation. There is no significant aortic valvular stenosis. MITRAL VALVE The mitral valve is thickened but opens well. Mitral annular calcification is mild. There is no christa l valve stenosis. Doppler and Color-flow revealed mild mitral regurgitation. TRICUSPID VALVE The tricuspid valve is normal in structure and function. Doppler and Color Flow revealed mild tricusp id regurgitation. There is no tricuspid valve prolapse or vegetation. There is no tricuspid valve ivonne nosis. PULMONIC VALVE The pulmonic valve is not well visualized. Doppler and Color Flow revealed no pulmonic valvular regur gitation. There is no pulmonic valvular stenosis. GREAT VESSELS The aortic root is borderline mildly enlarged. The ascending aorta is Mildly dilated. The IVC is mild ly dilated and collapses <50% with inspiration. PERICARDIAL EFFUSION There is no pleural effusion. There is no evidence of significant pericardial effusion. Critical Notification Critical Value: No <Conclusion> The left ventricular systolic function is normal and the ejection fraction is within normal range. Th e Ejection Fraction is 55-60%. Septal motion suggestive of conduction defect. Doppler and Color-flow revealed mild mitral regurgitation. Signed by : Sj Guevara, Electronically Approved : 06/11/2019 14:46:44
== END | disposition home or self-care (01) ==
LOC: US 12:35
PROVIDERS: ATTEND Internal Medicine Cardiovascular Disease
DX: I08.1 Rheumatic disorders of both mitral and tricuspid valves (principal); I73.9 Peripheral vascular disease, unspecified; I77.89 Other specified disorders of arteries and arterioles
CPT/HCPCS: 93306; 93925

== ENCOUNTER 2019-06-24 08:26 | Outpatient (CLI) | payer BC ==
[~2019-06-24] VITALS: Ht 182.9 cm; Wt 114.3 kg
[2019-06-24 08:49] LABS: BASO # 0.1 x10^3/uL (0.0-0.2); BASO % 1 % (0-3); EOS # 0.3 x10^3/uL (0.0-0.7); EOS % 3 % (0-3); HEMATOCRIT 44.3 % (39.0-53.0); HEMOGLOBIN 14.8 g/dL (13.0-17.5); LYMPH # 1.4 x10^3/uL (1.0-4.8); LYMPH % 12 % (24-48); MEAN CORPUSCULAR HEMOGLOBIN 30 pg (25-35); MEAN CORPUSCULAR HGB CONC 34 g/dL (31-37); MEAN CORPUSCULAR VOLUME 88 fL (79-100); MONO % 9 % (0-9); NEUT # 8.5 x10^3/uL (1.8-7.7); NEUT % 75 % (31-73); PLATELET COUNT 265 x10^3/uL (140-400); RED BLOOD COUNT 5.03 x10^6/uL (4.30-5.70); RED CELL DISTRIBUTION WIDTH 15.6 % (11.5-14.5); WHITE BLOOD COUNT 11.3 x10^3/uL (4.0-11.0)
[2019-06-24 08:56] VITALS: BP 158/78
[2019-06-24 08:59] LABS: PROTHROMBIN TIME PATIENT 14.4 SEC (11.7-14.0)
[2019-06-24 09:01] LABS: CALCIUM 8.7 mg/dL (8.5-10.1); CREATININE 1.2 mg/dL (0.7-1.3); GFR 59.3; POTASSIUM 3.9 mmol/L (3.5-5.1)
[2019-06-24 09:08] LABS: ALBUMIN 3.6 g/dL (3.4-5.0); ALBUMIN/GLOBULIN RATIO 0.9 (1.0-1.7); TOTAL BILIRUBIN 0.9 mg/dL (0.2-1.0); TOTAL PROTEIN 7.7 g/dL (6.4-8.2)
[2019-06-24] MEDS ORDERED: LIDOCAINE 1%/EPI 1:100,000 20 ML VIAL. ONE (09:51)
[2019-06-24] MEDS ORDERED: fentaNYL PF VIAL 100 MCG/2 ML VIAL ONE (10:14)
[2019-06-24] MEDS ORDERED: fentaNYL PF VIAL 100 MCG/2 ML VIAL IV ONE (10:45)
[2019-06-24] MEDS ORDERED: LIDOCAINE 1%/EPI 1:100,000 20 ML VIAL. INJ ONE (10:45)
[2019-06-24 11:00] VITALS: BP 143/71
[2019-06-24 11:15] VITALS: BP 158/62
--- NOTE | 2019-06-24 12:17 | NUR ---
Discharge instructions and discharge home medications reviewed with Patient and a copy given. All questions have been answered and understanding verbalized. The following instructions and handouts were given on incision care. Patient discharged to home with self care accompanied by spouse.
--- NOTE | 2019-06-25 13:51 | RAD ---
06/25/2019 11:47 AM Removal of left internal jugular PowerPort Indication: No longer requires access for chemotherapy Discussion: The risks and benefits of the procedure were discussed the patient. Informed consent was obtained. A timeout procedure was performed. The left chest was prepped and draped using maximum sterile barrier technique. All elements of maximal sterile barrier technique including the use of a cap, mask, sterile gown, sterile gloves, large sterile sheet, appropriate hand hygiene, and 2% chlorhexidine for cutaneous antisepsis (or acceptable alternative antiseptic per current guidelines) were followed for this procedure. 1% lidocaine was administered for local anesthesia. A 1 inch incision was made overlying the port reservoir. The reservoir and catheter removed intact which was confirmed with fluoroscopy. The wound was closed in layers using 4-0 Vicryl suture. Sterile dressings were applied. Total fluoroscopy time:: 0.1 MIN Dose area product: 1 Gycm2 No sedation Impression: Removal of left internal jugular PowerPort
== END 2019-06-24 12:22 | disposition home or self-care (01) ==
LOC: INTRAD 08:26
PROVIDERS: ATTEND Internal Medicine Hematology & Oncology
DX: Z45.2 Encounter for adjustment and management of vascular access device (principal); Z79.01 Long term (current) use of anticoagulants
CPT/HCPCS: 36415; 36590; 77001; 80053; 85025; 85610; J3010; J3490

== ENCOUNTER → 2019-08-12 | Outpatient (CLI) | payer BC ==
[2018-04-05 12:11] VITALS: BP_DIAS 62
[2019-06-24 11:15] VITALS: BP_SYST 158
[~2019-08-12] MED LIST changes: +CONTRAST GIVEN. MC PRN; -DIGO250T PO; +DIGO250T3 PO; +IOHEXOL 300 MG/ML 100ML VIAL. IV ONE
--- NOTE | 2019-08-12 16:01 | RAD ---
CT CHEST W/CONTRAST Indication: Malignant neoplasm of the left lung Technique: Postcontrast CT imaging was performed of the chest, multiplanar reconstruction images submitted. One or more of the following individualized dose reduction techniques were utilized for this examination: 1. Automated exposure control 2. Adjustment of the mA and/or kV according to patient size 3. Use of iterative reconstruction technique. Comparison: May 24, 2019; March 05, 2019 Findings: There is again spiculated noncalcified left upper lobe perihilar density estimated about 3.2 cm transverse by about 2.7 cm AP by 2.2 cm CC somewhat difficult to accurately compare although on coronal and sagittal images overall similar in appearance. Focus of more peripheral noncalcified left upper lobe density about 1.4 cm image 27 series 3 is more apparent on this exam especially compared with the February exam at which time there was smaller focus of subsolid density about 0.6 cm. There is a separate left upper lobe noncalcified nodule image 31 series 3 about 1.2 cm which is similar. Focus of noncalcified left lower lobe nodularity about 1 cm image 43 series 3 similar. Small 0.3 to 0.4 cm focus of somewhat nodular density of the superior right lower lobe image 30 series 3 is stable. There are also some other small foci of stable noncalcified nodularity of the left upper lobe such as seen on image 20, right upper lobe image 20, 0.5 cm left lower lobe image 26, right lower lobe about 0.7 cm image 39. There is emphysema with upper zone predominance. There is no new pleural or pericardial fluid or pneumothorax. There again has been median sternotomy. There is again dilatation of the ascending thoracic aorta about 4 cm, no dissection flap. Major airways are patent. There is coronary calcification. Enlarged pretracheal node about 1.8 cm short axis dimension is larger than the Misa exam when measured about 1.2 cm short axis dimension. 1.5 cm short axis subcarinal node is also somewhat larger as previously about 1.2 cm. Superior right paratracheal node about 1 cm short axis dimension is similar. Some irregularity of right posterior fourth and fifth ribs is similar in appearance. There is cholelithiasis. There is hypodense lesion of the left kidney difficult characterize of a cyst measuring about 1.3 cm in size. There is also small hypodense lesion of the right kidney which is not fully included about 0.9 cm with density measurements greater than a simple cyst 27 Hounsfield units. There is no significant adrenal nodularity. There is again somewhat nodular appearance of the visualized liver margin. IMPRESSION: 1. Mediastinal lymphadenopathy is somewhat greater. Previously seen spiculated left perihilar density is fairly similar, somewhat difficult to accurately compare. More peripheral focus of noncalcified nodular density of the left upper lobe is more apparent on this exam than older exams, developing nodule possible for which attention on short-term follow-up such as 3-6 months advised. Other previously seen nodules are more similar in appearance. 2. There is emphysema. 3. There is coronary calcification. 4. There is cholelithiasis. 5. There is left renal cyst. There is small hypodense lesion of the right kidney too small to accurately characterize, not fully included on this exam. 6. There is again somewhat dilated ascending thoracic aorta about 4 cm. Electronically signed by: Ladarius Kam MD (08/12/2019 3:58 PM) [id number]
== END | disposition home or self-care (01) ==
LOC: CT 08:28
PROVIDERS: ATTEND Internal Medicine Hematology & Oncology
DX: C34.12 Malignant neoplasm of upper lobe, left bronchus or lung (principal); J43.8 Other emphysema; I25.10 Atherosclerotic heart disease of native coronary artery without angina pectoris; K80.20 Calculus of gallbladder without cholecystitis without obstruction; N28.1 Cyst of kidney, acquired
CPT/HCPCS: 71260; Q9967

== ENCOUNTER → 2019-12-20 | Outpatient (CLI) | payer BC ==
--- NOTE | 2019-12-20 16:34 | RAD ---
EXAM: CT Chest with IV contrast INDICATION: Lung cancer TECHNIQUE: Multi-detector row CT images were acquired from the thoracic inlet through the upper abdomen with the use of IV contrast. Sagittal and coronal images were acquired from the transaxial data. All CT scans performed at this facility utilize dose optimization techniques as appropriate to the exam, including the following: Automated exposure control and adjustment of the mA and/or KV according to patient size (this includes techniques or standardized protocols for targeted exams where dose is indication/reason for exam). IV CONTRAST: Administered COMPARISON: 08/12/2019 and 02/27/2018 chest CTs with IV contrast. FINDINGS: CARDIOVASCULAR: Density in the right coronary artery suggestive of a coronary artery stent is present. The heart is mildly enlarged. No pericardial effusion. Epicardial pacemaker with generator in the subxiphoid left-sided upper abdominal wall is present. The thoracic aorta is mildly ectatic measuring 4.4 x 4.0 cm in AP by transverse diameter. No evidence of dissection. MEDIASTINUM & SOHAIL: Slight interval decrease in still present mediastinal adenopathy with largest lymph node being a right lower paratracheal node now measuring 1.4 cm in short axis diameter compared with 1.7 cm previously. LUNGS: Left upper lobe perihilar lung mass abutting the major fissure with spiculation has decreased slightly in the interval (when comparing axial image 23 of series 2 this exam with image 27 of series 3 on 08/12/2019 and image 25 of series 2 on 02/27/2018). There is slightly more perihilar soft tissue density and stranding that partly obscures the decrease in size of this lung mass which is estimated currently to measure 1.8 cm AP by 2.5 cm transverse by 1.9 cm craniocaudal (image 39 series 4) More anterior and inferior left upper lobe soft tissue nodule is slightly decreased in size from the immediate prior exam, now measuring 7.5 mm (image 26 axial series 2) compared with 12 mm on 08/12/2019 (image 31 series 3 that exam). Left lower lobe peripheral pulmonary nodule shows subtle gradual increase in size from 7 mm (image 41 of series 2 on 02/27/2018) to 9.4 mm (image 43 of series 3 on 08/12/2019) to 10 mm currently (image 39 of series 2 this exam). Moderate background centrilobular pattern emphysema remains present and there is slightly more apparent interstitial thickening in the left upper lobe PLEURAL SPACE: No pleural effusions or pneumothorax. OSSEOUS & SOFT TISSUE: No acute or aggressive appearing osseous lesions. Degenerative changes in the thoracic spine. There is right axillary soft tissue stranding and prominence of the lymph nodes is similar to prior. ABDOMEN: Cholelithiasis. Abdominal aortic calcifications and noncalcified plaque resulting in approximately 45-50 percent luminal stenosis in the proximal infrarenal segment. IMPRESSION: Overall findings suggesting positive treatment response with decrease in the primary tumor in the left upper lobe and decrease in associated mediastinal adenopathy. There is a peripheral left lower lobe pulmonary nodule that is marginally increased from the previous examination that merits attention on follow-up. Otherwise no evidence of disease progression. Electronically signed by: Angel Beauchamp MD (12/20/2019 4:31 PM) [id number]
== END | disposition home or self-care (01) ==
LOC: CT 13:03
PROVIDERS: ATTEND Internal Medicine Hematology & Oncology
DX: C34.12 Malignant neoplasm of upper lobe, left bronchus or lung (principal); Z95.1 Presence of aortocoronary bypass graft; E11.9 Type 2 diabetes mellitus without complications; I51.7 Cardiomegaly; R59.0 Localized enlarged lymph nodes; J98.4 Other disorders of lung; J43.2 Centrilobular emphysema; M47.814 Spondylosis without myelopathy or radiculopathy, thoracic region; K80.20 Calculus of gallbladder without cholecystitis without obstruction; I70.0 Atherosclerosis of aorta; R91.1 Solitary pulmonary nodule; Z92.21 Personal history of antineoplastic chemotherapy; Z95.0 Presence of cardiac pacemaker
CPT/HCPCS: 71260; Q9967

== ENCOUNTER → 2020-04-13 | Outpatient (CLI) | payer BC ==
[~2020-04-13] MED LIST changes: -CONTRAST GIVEN. MC PRN; -IOHEXOL 300 MG/ML 100ML VIAL. IV ONE
--- NOTE | 2020-04-14 09:32 | RAD ---
CT of the chest without contrast 04/14/2020 INDICATION: Malignant neoplasm, left lung. COMPARISON STUDY: CT chest with contrast December 20, 2019. TECHNIQUE: Multidetector CT imaging of the chest was performed without the administration of IV contrast. FINDINGS: Mild mediastinal adenopathy is again noted. The appearance of which is essentially unchanged in the interim. Heart remains mildly enlarged. Postoperative changes to the mediastinum are similar. There is no pneumothorax. No pleural effusion is seen. Moderate to severe emphysematous changes throughout the bilateral lungs are similar. Allowing for differences in technique between studies morphology of the left hilum is essentially unchanged. Ovoid nodule in the anterior left upper lobe measuring 1.2 cm is unchanged. Ovoid nodule in the lateral left lower lobe measuring 1.2 cm is also unchanged. 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 No acute changes of the upper abdomen are identified. No acute osseous changes are identified. IMPRESSION: Stable appearance of the chest including left hilar morphology, mediastinal adenopathy, dominant nodules in the left upper and lower lobes. CT DOSING PQRS STATEMENT: One or more of the following individualized dose reduction techniques were utilized for this examination: 1. Automated exposure control 2. Adjustment of the mA and/or kV according to patient size 3. Use of iterative reconstruction technique Electronically signed by: Anatoly Dubon MD (04/14/2020 9:29 AM) [id number]
== END | disposition home or self-care (01) ==
LOC: CT 10:47
PROVIDERS: ATTEND Internal Medicine Hematology & Oncology
DX: C34.12 Malignant neoplasm of upper lobe, left bronchus or lung (principal); I82.C21 Chronic embolism and thrombosis of right internal jugular vein; I51.7 Cardiomegaly; J43.9 Emphysema, unspecified; R91.1 Solitary pulmonary nodule
CPT/HCPCS: 71250

== ENCOUNTER → 2020-07-07 | Outpatient (CLI) | payer BC ==
--- NOTE | 2020-07-07 15:12 | RAD ---
PQRS Compliance Statement: One or more of the following individualized dose reduction techniques were utilized for this examination: 1. Automated exposure control 2. Adjustment of the mA and/or kV according to patient size 3. Use of iterative reconstruction technique CT CHEST WO CONTRAST Clinical Indication: Reason: MALIGNANT NEOPLASM OF LEFT LUNG / Spl. Instructions: / History: Comparison: CT chest without contrast April 13, 2020. TECHNIQUE: Helical CT imaging of the chest is performed without contrast. Findings: Right chest wall venous collaterals and haziness of the axilla are unchanged. CABG changes. Coronary artery disease. Mild mediastinal adenopathy is unchanged. Cardiac pacer is seen. Cardiac size upper limits of normal, stable. No pericardial effusion. There is moderate emphysema. Left hilar opacity is not significant changed. Linear scarring in the lateral right lower lobe is unchanged. 1.1 cm nodule in the anterior left upper lobe is stable. 1.1 cm nodule in the lateral left lower lobe is unchanged. No new pulmonary nodule is seen. Cholelithiasis. Thoracic spine alignment is maintained. IMPRESSION: Stable chest findings including left hilar opacity, mild mediastinal adenopathy, and left lung nodules. Electronically signed by: Marc Roque MD (07/07/2020 3:09 PM) [facility]
== END ==
LOC: CT 09:22
PROVIDERS: ATTEND Internal Medicine Hematology & Oncology
DX: C34.12 Malignant neoplasm of upper lobe, left bronchus or lung (principal); R91.1 Solitary pulmonary nodule; J43.9 Emphysema, unspecified
CPT/HCPCS: 71250

== ENCOUNTER → 2020-11-04 | Outpatient (CLI) | payer BC ==
[~2020-11-04] MED LIST changes: +GEMF600T20 PO; -GEMF600T8 PO; -LISI-338 PO; +LISI-517 PO
--- NOTE | 2020-11-04 15:42 | CARD ---
MR#: [id number] Date of Study: 11/04/2020 Ordering Physician: SJ GUEVARA, Referring Physician: SJ GUEVARA, Tech: Elena Escobedo [facility] APPROVED REPORT EXAM: Two-dimensional and M-mode echocardiogram with Doppler and color Doppler. Other Information Quality : Fair INDICATION COPD Pacemaker RISK FACTORS Smoking 2D DIMENSIONS RVDd4.0 (2.9-3.5cm)Left Atrium(2D)4.2 (1.6-4.0cm) IVSd1.3 (0.7-1.1cm)Aortic Root(2D)3.0 (2.0-3.7cm) LVDd4.8 (3.9-5.9cm)LVOT Diameter2.3 (1.8-2.4cm) PWd1.2 (0.7-1.1cm)LVDs4.2 (2.5-4.0cm) FS (%) 11.4 %SV26.3 ml LVEF(%)24.7 (>50%) Aortic Valve AoV Peak Surendra.117.3cm/sAoV VTI18.5cm AO Peak GR.5.5mmHgLVOT Peak Surendra.97.5cm/s LVOT VTI 17.75cmAO Mean GR.3mmHg CINDI (VMAX)3.37qc1TDE (VTI)3.90cm2 Mitral Valve MV E Nhxmjqdy57.4cm/sMV DECEL MHAO253ag MV A Zwqolwxk42.8cm/sMV GGN90zg E/A Ratio0.9MVA (PHT)3.59cm2 TDI E/Lateral E'7.2E/Medial E'10.8 Tricuspid Valve TR P. Lcdjfyto851qz/sRAP NEMCAXBZ1irEk TR Peak Gr.35wkBkAHDW70mlVu Pulmonary Vein S1 Ucfzfbja63.3cm/sD2 Knygqlgu05.0cm/s LEFT VENTRICLE The left ventricle is normal size. There is mild concentric left ventricular hypertrophy. Left ventri kathe systolic function is normal. The Ejection Fraction is 50-55%. Abnormal septal motion probably sec ondary to pacemaker activation. Transmitral Doppler flow pattern is Grade I-abnormal relaxation patte rn. RIGHT VENTRICLE The right ventricle is mildly to moderately dilated. Systolic function is mildly reduced. There is a pacemaker lead in the right ventricle. ATRIA The left atrium is mildly dilated. The right atrium is moderately dilated. A pacemaker is seen in the right atrium consistent with history. The interatrial septum is intact with no evidence for an atria l septal defect or patent foramen ovale as noted on 2-D or Doppler imaging. AORTIC VALVE The aortic valve is mildly thickened but opens well. Doppler and Color Flow revealed no significant a ortic regurgitation. There is no significant aortic valvular stenosis. MITRAL VALVE The mitral valve is calcified but opens well. Mitral annular calcification is mild. There is no evide nce of mitral valve prolapse. There is no mitral valve stenosis. Doppler and Color-flow revealed mild mitral regurgitation. TRICUSPID VALVE The tricuspid valve is normal in structure and function. Doppler and Color Flow revealed moderate tri cuspid regurgitation. There is moderate pulmonary hypertension. The PA pressure was estimated at 54 m mHg. There is no tricuspid valve stenosis. PULMONIC VALVE The pulmonic valve is not well visualized. Doppler and Color Flow revealed no pulmonic valvular regur gitation. There is no pulmonic valvular stenosis. GREAT VESSELS The aortic root is normal in size. The ascending aorta is not well seen. The IVC is dilated and colla pses >50% with inspiration. PERICARDIAL EFFUSION There is no evidence of significant pericardial effusion. Critical Notification Critical Value: No <Conclusion> Left ventricle systolic function is normal. The Ejection Fraction is 50-55%. Abnormal septal motion probably secondary to pacemaker activation. Transmitral Doppler flow pattern is Grade I-abnormal relaxation pattern. Pacer lead noted RA/RV. Mild mitral regurgitation. Moderate tricuspid regurgitation. There is moderate pulmonary hypertension. The PA pressure was estimated at 54 mmHg. There is no evidence of significant pericardial effusion. Signed by : Chandrakant Sidhu, Electronically Approved : 11/04/2020 15:42:40
== END ==
LOC: ECHO 12:38
PROVIDERS: ATTEND Internal Medicine Cardiovascular Disease
DX: I08.1 Rheumatic disorders of both mitral and tricuspid valves (principal); I27.20 Pulmonary hypertension, unspecified; J44.9 Chronic obstructive pulmonary disease, unspecified; I73.9 Peripheral vascular disease, unspecified
CPT/HCPCS: 93306

== ENCOUNTER → 2020-11-11 | Outpatient (CLI) | payer BC ==
--- NOTE | 2020-11-11 10:23 | RAD ---
MR#: [id number] Date of Study: 11/11/2020 Ordering Physician: SJ GUEVARA, Referring Physician: SJ GUEVARA, Tech: APPROVED REPORT Patient Location: OUT-PATIENT Risk Factors Hypertension Diabetes Smoking Duplex Results A/PTransverseLongitudinal Proximal Aorta 2.6cm Mid Aorta 2.1cm Distal Aorta 2.1cm Doppler VelocityWaveform Proximal Aorta 54.5 cm/sec Aorta Mid. 130.3 cm/sec Distal Aorta 122.2 cm/sec Findings Limited evaluation of the abdominal aorta due to the patient's body habitus and overlying bowel gas b ut nonetheless the proximal, mid and distal abdominal aorta are within normal limits in AP diameter. There is mild to moderate diffuse plaque noted. No obvious evidence of aneurysm or dissection is ev ident. Aortic velocities are within normal limits. Critical Notification Critical Value: No <Conclusion> 1. No evidence of abdominal aortic aneurysm. Technically limited study. Signed by : Sj Guevara, Electronically Approved : 11/11/2020 10:23:10
--- NOTE | 2020-11-11 10:26 | RAD ---
MR#: [id number] Date of Study: 11/11/2020 Ordering Physician: SJ GUEVARA, Referring Physician: SJ GUEVARA, Tech: APPROVED REPORT Patient Location: OUT-PATIENT Laterality:Bilateral Indications Bruit Risk Factors Hypertension: Hyperlipidemia Diabetes Smoking Doppler Spectral Velocity Analysis Right Left pCCA 69/8 cm/spCCA 64/9 cm/s mCCA 86/13 cm/smCCA 64/11 cm/s dCCA 84/10 cm/sdCCA 88/16 cm/s ECA 397/ cm/sECA 386/ cm/s pICA 76/18 cm/spICA 206/28 cm/s Gabrile 104/17 cm/smICA 114/19 cm/s dICA 144/19 cm/sdICA 83/19 cm/s ICA/CCA 1.67ICA/CCA 3.22 Findings Grayscale images the bilateral common carotid, external and internal carotid vessels reveals moderate to severe diffuse atherosclerotic plaque especially localized to the carotid bulbs bilaterally. On the right side there is likely moderate 50 to 69% stenosis based on velocity criteria involving th e right internal carotid artery. There is likely a greater than 70% stenosis involving the right ext ernal carotid artery. Vertebral velocities are antegrade. The left internal carotid artery in the proximal segment has moderate 50 to 69% stenosis. There is a gain greater than 70% stenosis involving the external carotid artery. Antegrade vertebral velocities are noted. ICA to CCA ratios are elevated at 1.69 on the right and 2.3 on the left. Critical Notification Critical Value: No <Conclusion> 1. Moderate bilateral internal carotid arterial disease 2. Severe bilateral external carotid arterial disease. Signed by : Sj Guevara, Electronically Approved : 11/11/2020 10:25:49
== END ==
LOC: US 09:11
PROVIDERS: ATTEND Internal Medicine Cardiovascular Disease
DX: I65.23 Occlusion and stenosis of bilateral carotid arteries (principal)
CPT/HCPCS: 76770; 93880

== ENCOUNTER → 2021-01-19 | Outpatient (CLI) | payer BC ==
--- NOTE | 2021-01-19 15:12 | RAD ---
CT of the chest without contrast 01/19/2021 INDICATION: Follow-up, lung cancer. Malignant neoplasm of the left lung. COMPARISON STUDY: CT chest without contrast July 07, 2020 TECHNIQUE: Multidetector CT imaging of the chest was performed without contrast. FINDINGS: Heart size is top normal and stable. Limited noncontrast enhanced evaluation the mediastinum demonstr ates persistent, grossly unchanged is mildly conspicuous lymphadenopathy. Most prominent node is just anterior to the inferior trachea measuring 1.25 cm in short axis diameter, unchanged with respect to comparison study. Limited visualization of the upper abdomen demonstrates no acute changes. There is no pneumothorax or pleural effusion. Severe emphysematous changes are noted. Perihilar opacification and mild volume loss in the left upper lobe with some associated traction bro nchiectasis is grossly unchanged in morphology with respect to comparison exam. Rounded nodule in the lingula is unchanged when measured in a comparable fashion measuring approximately 1 cm (axial image 30).. Rounded nodule in the left lower lobe is unchanged, also measuring approximately 1 cm (axial i mage 40). IMPRESSION: 1. Stable appearance of the chest. No acute cardiopulmonary process is identified. 2. Stable appearance of left hilar opacity, left upper and lower lobe pulmonary nodules, and mediast inal lymph nodes CT DOSING PQRS STATEMENT: One or more of the following individualized dose reduction techniques were utilized for this examinat ion: 1. Automated exposure control 2. Adjustment of the mA and/or kV according to patient size 3. Use of iterative reconstruction technique Electronically signed by: Anatoly Dubon MD (01/19/2021 3:09 PM) [id number]
== END ==
LOC: CT 13:34
PROVIDERS: ATTEND Internal Medicine Hematology & Oncology
DX: C34.12 Malignant neoplasm of upper lobe, left bronchus or lung (principal)
CPT/HCPCS: 71250

== ENCOUNTER → 2021-01-25 | Outpatient (CLI) | payer BC ==
[~2021-01-25] MED LIST changes: +REGADENOSON 0.4 MG/5 ML DISP.SYRIN. IV ONE
--- NOTE | 2021-01-25 12:42 | RAD ---
MR#: [id number] Date of Study: 01/25/2021 Ordering Physician: SJ GUEVARA, Referring Physician: SJ GUEVARA, Tech: Roscoe Saenz MBA, RDMS, RVT, RDCS, RTR APPROVED REPORT Patient Location : OUT-PATIENT Indications VENOUS INSUFFICIENCY Findings Right great saphenous vein measures 6.1 mm and the left great saphenous vein measures 7.2 mm. Bilate ral greater and lesser saphenous veins did not show any evidence of reflux. Limited images of the bi lateral saphenofemoral junctions are grossly unremarkable. Critical Notification Critical Value: No <Conclusion> 1. Negative for reflux in the bilateral greater and lesser saphenous veins. Signed by : Sj Guevara, Electronically Approved : 01/25/2021 12:41:51
--- NOTE | 2021-01-25 12:50 | RAD ---
MR#: [id number] Date of Study: 01/25/2021 Ordering Physician: JS GUEVARA, Referring Physician: SJ GUEVARA, Tech: Roscoe Saenz MBA, RDMS, RVT, RDCS, RTR APPROVED REPORT Patient Location: OUT-PATIENT Indications PAD Findings Right arm 137, left arm 128 Bilateral ankle pressures could not be obtained due to noncompressibility. Nondiagnostic VENTURA Critical Notification Critical Value: No <Conclusion> 1. Nondiagnostic VENTURA. Signed by : Sj Guevara, Electronically Approved : 01/25/2021 12:50:13
--- NOTE | 2021-01-25 12:58 | RAD ---
MR#: [id number] Date of Study: 01/25/2021 Ordering Physician: SJ GUEVARA, Referring Physician: SJ GUEVARA, Tech: Roscoe Saenz MBA, RDMS, RVT, RDCS, RTR APPROVED REPORT Patient Location: OUT-PATIENT Indications PAD VELOCITY AND DOPPLER WAVEFORM ANALYSIS RIGHT cm/secWaveformSeverity LEFT cm/secWaveform Severity dCFA 178.0MonophasicdCFA 141.0Monophasic Prof Fem Art. 152.0MonophasicProf Fem Art. 119.0Monophasic Fem Art Prox. 330.0MonophasicFem Art Prox. 291.0Monophasic Fem Art Mid. 496.0MonophasicFem Art Mid. 109.0Monophasic Fem Art Dist. 81.0MonophasicFem Art Dist. 41.0Monophasic Pop Art(Fossa) 197.0MonophasicPop Art(AK) 76.0Monophasic SOCIAL MEDIA MARKETER Prox. 96.0MonophasicPTA Prox. 12.0Monophasic SOCIAL MEDIA MARKETER Dist. 31.0MonophasicPTA Dist. 6.0Monophasic DORIE Prox. 30.0MonophasicATA Prox. 22.0Monophasic DPA 13MonophasicDPA 9Monophasic Findings Grayscale images the bilateral lower extremity arterial vessels demonstrate moderate to severe diffus e atherosclerosis. Based on velocity criteria there is likely a greater than 75% stenosis involving the proximal and mid SFA. There is two-vessel runoff below the knee with monophasic waveforms. The peroneal artery is n ot well visualized. On the left side similarly there is likely a 70% stenosis involving the left proximal SFA. Below the knee there are severely diminished waveforms with two-vessel runoff consistent with more proximal ob struction. Cannot rule out bilateral iliac disease given monophasic waveforms from the level of the common femoral artery. Critical Notification Critical Value: No <Conclusion> 1. Moderate to high-grade bilateral lower extremity arterial disease as described above Signed by : Sj Guevara, Electronically Approved : 01/25/2021 12:58:07
--- NOTE | 2021-01-25 18:14 | RAD ---
MR#: [id number] Date of Study: 01/25/2021 Ordering Physician: SJ GUEVARA, Referring Physician: JESUS MOLINA Tech: RT Cintia BrianR) (N) APPROVED REPORT Test Type: Pharmacological Stress Nurse/Tech: Gemini Cisneros RN Test Indications: CAD Cardiac History: High cholesterol, Diabetes, CABG, Cardiac stent, pacemaker Medications: See Electronic Medical Record Medical History: See Electronic Medical Record Resting ECG: AV paced Resting Heart Rate: 72 bpm Resting Blood Pressure: 149/68mmHg Pretest Chest Pain: No chest pain Nurse/Tech Notes S1S2, Lungs clear Consent: The procedure was explained to the patient in lay terms. Informed consent was witnessed. Loki eout was entered into [employer]. History and Stress Test performed by RT Snehal (R) (N) Pharm. Details Pharmacologic stress testing was performed using 0.4mg per 5ml of regadenoson given intravenously ove r 7-10 seconds. Stress Symptoms Dyspnea, Nausea, Lightheadness POST EXERCISE Reason for Termination: Infusion complete Max HR: 130 bpm Max Blood Pressure: 137/63mmHg Blood Pressure response to exercise: Normal blood pressure response during stress. Heart Rate response to exercise: WNL Chest Pain: No. Arrhythmia: No. ST Change: No. INTERPRETATION Stress EKG Conclusion: The resting EKG shows an AV paced rhythm. The stress EKG shows a V paced rhythm. Imaging Protocol IMAGE PROTOCOL: Rest Tc-99m/stress Tc-99m 1 day Rest: Stress: Viability: Radiopharm.Tc99m XbtdonkbaSv66m Sestamibi Dose10.6mCi 32.6mCi Duration 13min. 13min. Img Date 01/25/2021 01/25/2021 Inj-Img Askr67iae. 60min. Rest Admin Site:IV - Left AntecubitalAdministrator:RT Snehal (Loren)(N) Stress Admin Site: IV - Left AntecubitalAdministrator: RT Snehal (R)(N) STRESS DATA End Diast. Vol.218.0mlLVEDV index BSA92.0ml End Syst. Vol.132.0mlLVESV index BSA56.0ml Myocardial Qdmg681.0gEject. Kvieqzdr75.0% Stress Scores Regional WT0.00Summed WT29.00 Regional WM0.00Summed WM17.00 LV Perfusion The stress images show an inferior lateral wall defect. The rest images show an inferior lateral wall defect. 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 LV Perf. Quant 17 Seg. SSS16.00 17 Seg. SRS7.00 17 Seg. SDS9.00 Stress Defect Extent (% LAD)3.10Rest Defect Extent (% LAD)0.60Rev. Defect Extent (% LAD)2.50 Stress Defect Extent (% LCX) 81.30Rest Defect Extent (% LCX)28.80Rev. Defect Extent (% LCX)71.30 Stress Defect Extent (% RCA)52.20Rest Defect Extent (% RCA)27.80Rev. Defect Extent (% RCA)41.10 Stress Defect Extent (% ARLETTE)33.30Rest Defect Extent (% ARLETTE)16.30Rev. Defect Extent (% ARLETTE)26.10 Conclusion 1. Paced rhythm at rest and with exertion. 2. Nuclear imaging shows an inferior lateral infarct with mild holli-infarct reversible ischemia. 3. Ejection fraction is decreased at 38%. 4. Moderate risk Lexiscan nuclear stress test most consistent with a prior infarct with decreased LV systolic function. Signed by : Devonte Chase MD Electronically Approved : 01/25/2021 18:14:25
== END ==
LOC: NM 10:03
PROVIDERS: ATTEND Internal Medicine Cardiovascular Disease
DX: I70.203 Unspecified atherosclerosis of native arteries of extremities, bilateral legs (principal); I87.2 Venous insufficiency (chronic) (peripheral); I25.10 Atherosclerotic heart disease of native coronary artery without angina pectoris
CPT/HCPCS: 78452; 93017; 93922; 93925; 93970; A9500; J2785

== ENCOUNTER → 2021-07-23 | Outpatient (CLI) | payer BC ==
[~2021-07-23] MED LIST changes: -LISI-517 PO; +LISI5TAB15 PO; -REGADENOSON 0.4 MG/5 ML DISP.SYRIN. IV ONE
--- NOTE | 2021-07-26 08:29 | RAD ---
PQRS Compliance Statement: One or more of the following individualized dose reduction techniques were utilized for this examinat ion: 1. Automated exposure control 2. Adjustment of the mA and/or kV according to patient size 3. Use of iterative reconstruction technique CT THORAX WO 07/23/2021 2:45 PM Indication: Upper lobe neoplasm COMPARISON: CT chest 01/19/2021, 07/07/2020, 04/13/2020. TECHNIQUE: Multiple axial CT images of the chest were obtained without intravenous contrast. Coronal and sagittal reformats are provided. FINDINGS: There is a 1.2 cm solid noncalcified pulmonary nodule in the lingula, previously measuring similar on 01/19/2021. There is left hilar consolidative change with increased nodular consolidation along the pedraza perior and lateral component (series 3, image 27) with more peripheral consolidative change. Consider ation may be given for postobstructive pneumonitis, atelectasis or neoplastic process. Mild to modera te centrilobular pulmonary emphysema. No pleural effusions, pulmonary vascular congestion or pneumoth orax. Heart size is enlarged, stable. Thoracic aorta is ectatic measuring up to 4.0 cm. Moderate calc ified atheromatous plaque is identified. Three-vessel coronary vascular opacifications are present. M edian sternotomy changes are present. No pericardial effusion. Thoracic esophagus is normal in appear ance. Limited evaluation for hilar lymphadenopathy due to the lack of intravenous contrast. No new or enlarging thoracic lymphadenopathy. Visualized portions of the upper abdomen appear stable. IMPRESSION: Left hilar consolidative changes are redemonstrated with increased consolidative change along the lat eral and superior margin which could reflect postobstructive pneumonitis, atelectasis or tumor. Short interval follow-up could be of benefit versus PET/CT. Solid noncalcified pulmonary nodule in the lingula measures 1.2 cm, stable. Mild to moderate centrilobular pulmonary emphysema. Electronically signed by: Gwendolyn Ervin MD (07/26/2021 8:26 AM) [facility]
== END ==
LOC: CT 14:35
PROVIDERS: ATTEND Internal Medicine Hematology & Oncology
DX: C34.12 Malignant neoplasm of upper lobe, left bronchus or lung (principal); R91.1 Solitary pulmonary nodule; J43.2 Centrilobular emphysema; I77.810 Thoracic aortic ectasia; I70.90 Unspecified atherosclerosis; Z93.8 Other artificial opening status
CPT/HCPCS: 71250

== ENCOUNTER → 2021-11-01 | Outpatient (CLI) | payer BC ==
--- NOTE | 2021-11-02 09:43 | RAD ---
PQRS Compliance Statement: One or more of the following individualized dose reduction techniques were utilized for this examinat ion: 1. Automated exposure control 2. Adjustment of the mA and/or kV according to patient size 3. Use of iterative reconstruction technique CT THORAX WO 11/01/2021 11:04 AM Indication: Malignant neoplasm of the left lung COMPARISON: CT chest 07/23/2021 TECHNIQUE: Multiple axial CT images of the chest were obtained with intravenous contrast. Coronal and sagittal reformats are provided. FINDINGS: There is consolidative change identified within the inferior lingula with associated volume loss and retraction of the fissure. Air bronchograms are present. Overall extent of disease appears similar me asuring approximately 6.0 x 6.6 cm. There is peripheral groundglass changes which appear more conspic uous compared to prior examination from 07/23/2021 which could reflect postobstructive pneumonitis. T here is a persistent satellite nodule within the lingula measuring 10 mm, stable. Solid noncalcified pulmonary nodule in the left lower lobe measures 8 mm (series 3, image 41) which is stable. There is bibasilar subsegmental atelectasis or scarring. Mild centrilobular pulmonary emphysema. No significan t pleural effusions. Peripheral groundglass opacity identified within the lateral right lower lobe (s eries 3, image 36) is not significantly changed. No pulmonary vascular congestion or pneumothorax. St able appearance of the thyroid gland. There is suggestion of a band pacer wire in the right IJ region . Median sternotomy changes are present. Precarinal lymph node measures 1.3 cm with normal fatty hilu m, stable. No new or enlarging thoracic lymph nodes. Heart size is stable. Coronary vascular calcific ations are present. Thoracic esophagus is normal. Upper abdomen is stable. Cholelithiasis. No suspici ous osseous abnormality is identified. IMPRESSION: No findings to suggest disease progression. Satellite nodule in the left lingula and additional solid noncalcified pulmonary nodule in the left lower lobe appears stable. Electronically signed by: Gwendolyn Ervin MD (11/02/2021 8:59 AM) [facility]IM[facility]
== END ==
LOC: CT 11:03
PROVIDERS: ATTEND Internal Medicine Hematology & Oncology
DX: C34.12 Malignant neoplasm of upper lobe, left bronchus or lung (principal); R91.1 Solitary pulmonary nodule; J43.2 Centrilobular emphysema; I25.10 Atherosclerotic heart disease of native coronary artery without angina pectoris
CPT/HCPCS: 71250

== ENCOUNTER → 2021-11-29 | Outpatient (CLI) | payer BC ==
--- NOTE | 2021-11-30 17:35 | CARD ---
MR#: [id number] Date of Study: 11/29/2021 Ordering Physician: SJ GUEVARA, Referring Physician: SJ GUEVARA, Tech: Yohana Daugherty [facility] APPROVED REPORT EXAM: Two-dimensional and M-mode echocardiogram with Doppler and color Doppler. Other Information Quality : AverageHR: 98bpm Rhythm : NSR INDICATION Cardiac Disease: CAD 2D DIMENSIONS RVDd3.5 (2.9-3.5cm)Left Atrium(2D)4.5 (1.6-4.0cm) IVSd1.1 (0.7-1.1cm)Aortic Root(2D)3.2 (2.0-3.7cm) LVDd5.4 (3.9-5.9cm)LVOT Diameter2.7 (1.8-2.4cm) PWd1.2 (0.7-1.1cm)LVDs3.4 (2.5-4.0cm) FS (%) 38.0 %SV95.8 ml Aortic Valve AoV Peak Surendra.131.5cm/sAoV VTI19.8cm AO Peak GR.6.9mmHgLVOT Peak Surendra.97.9cm/s LVOT VTI 13.35cmAO Mean GR.4mmHg CINDI (VMAX)3.44jt9BUL (VTI)3.81cm2 Mitral Valve MV E Fmrqmlsf57.1cm/sMV DECEL FTTU446fw MV A Qqvkscxp63.9cm/sMV HKQ14py E/A Ratio0.7MVA (PHT)5.09cm2 TDI E/Lateral E'12.4E/Medial E'15.9 Pulmonary Valve PV Peak Lqtgcnec00.1cm/sPV Peak Grad.2mmHg Tricuspid Valve TR P. Zefuptmq549zg/sRAP ZCEZMPEV4oxCo TR Peak Gr.36dgHkLGYU45zjLg Pulmonary Vein S1 Enhvllmk05.2cm/sD2 Uxoimtbm49.5cm/s PVa [id number] LEFT VENTRICLE The left ventricle is normal size. There is borderline to mild concentric left ventricular hypertroph y. The left ventricular systolic function is normal and the ejection fraction is within normal range. The Ejection Fraction is 50-55 %. There is normal LV segmental wall motion. Tissue Doppler imaging r eveals abnormal left ventricular diastolic dysfunction. No left ventricle thrombus noted on this stud y. There is no ventricular septal defect visualized. There is no left ventricular aneurysm. There is no mass noted in the left ventricle. RIGHT VENTRICLE The right ventricle is normal size. There is normal right ventricular wall thickness. The right ventr icular systolic function is normal. ATRIA The left atrium size is normal. The right atrium size is normal. The interatrial septum is intact wit h no evidence for an atrial septal defect or patent foramen ovale as noted on 2-D or Doppler imaging. AORTIC VALVE The aortic valve is normal in structure and function. The aortic valve is trileaflet. Doppler and Col or Flow revealed no significant aortic regurgitation. There is no significant aortic valvular stenosi s. There is no aortic valvular vegetation. MITRAL VALVE The mitral valve is normal in structure and function. There is no evidence of mitral valve prolapse. There is no mitral valve stenosis. Doppler and Color Flow revealed mild mitral regurgitation. TRICUSPID VALVE The tricuspid valve is normal in structure and function. Doppler and Color Flow revealed mild tricusp id regurgitation. There is no tricuspid valve prolapse or vegetation. There is no tricuspid valve ivonne nosis. PULMONIC VALVE The pulmonary valve is normal in structure and function. Doppler and Color Flow revealed no pulmonic valvular regurgitation. There is no pulmonic valvular stenosis. GREAT VESSELS The aortic root is normal in size. The ascending aorta is normal in size. The IVC is normal in size a nd collapses >50% with inspiration. PERICARDIAL EFFUSION There is no evidence of significant pericardial effusion. Critical Notification Critical Value: No <Conclusion> The left ventricle is normal size. The left ventricular systolic function is normal and the ejection fraction is within normal range. The Ejection Fraction is 50-55 %. There is borderline to mild concentric left ventricular hypertrophy. Doppler and Color Flow revealed no significant aortic regurgitation. There is no significant aortic valvular stenosis. Doppler and Color Flow revealed mild mitral regurgitation. Doppler and Color Flow revealed mild tricuspid regurgitation. Signed by : Devonte Chase MD Electronically Approved : 11/30/2021 17:34:11
== END ==
LOC: ECHO 12:21
PROVIDERS: ATTEND Internal Medicine Cardiovascular Disease
DX: I08.1 Rheumatic disorders of both mitral and tricuspid valves (principal); I25.10 Atherosclerotic heart disease of native coronary artery without angina pectoris
CPT/HCPCS: 93306; C8929